=== PATIENT | female | born 1965 | race Two or more races ===

== ENCOUNTER 2023-11-22 20:22 | Emergency (ER) | payer SELFPAY ==
[~2023-11-22] VITALS: Ht 162.6 cm; Wt 70.0 kg
[2023-11-22 21:21] LABS: Eosinophils # (auto) 0.4 10 ^3/uL (0-0.8); Lymphocytes # (auto) 1.3 10 ^3/uL (0.4-5.4); Monocytes # (auto) 0.3 10 ^3/uL (0-1.3); Neutrophils # (auto) 1.7 10 ^3/uL (1.6-8.6); Nucleated Red Blood Cells % 0.1 %; Red Cell Distribution Width 13.3 % (11.8-14.3)
[2023-11-22 21:23] LABS: Basophils # (auto) 0 10 ^3/uL (0-0.2); Eosinophils % (auto) 9.7 % (0.0-7.0); Hematocrit 39.3 % (36.0-46.0); Hemoglobin 13.8 g/dL (12.2-16.2); Lymphocytes % (auto) 35.2 % (10.0-50.0); Mean Corpuscular Hemoglobin 35.1 pg (28.0-32.0); Mean Corpuscular Hgb Conc. 35.2 g/dL (32.0-36.0); Mean Corpuscular Volume 99.8 fL (80.0-100.0); Neutrophils % (auto) 46.1 % (37.0-80.0); Red Blood Cells 3.94 10^6/uL (4.0-5.20); White Blood Cell 3.7 10^3/uL (4.4-10.8)
[2023-11-22 21:38] LABS: Acetaminophen < 2.0 UG/ML (10.0-20.0); Alanine Aminotransferase 53 U/L (7-40); Albumin 4.1 g/dL (3.2-4.8); Alkaline Phosphatase 183 U/L (46-116); Anion Gap 14 (5-15); Aspartate Aminotransferase 97 U/L (13-40); BUN/Creatinine Ratio 19.8 (10.0-20.0); Blood Alcohol 200.8 mg/dL (<10); Blood Urea Nitrogen 17 mg/dL (9-23); Calcium 9.5 mg/dL (8.7-10.4); Carbon Dioxide 16 mmol/L (20-30); Chloride 114 mmol/L (98-107); Glucose 92 mg/dL (74-106); Potassium 3.5 mmol/L (3.5-5.1); Sodium 144 mmol/L (136-145)
[2023-11-22 21:39] LABS: Bilirubin, Total 0.9 mg/dL (0.2-1.0); Total Protein 7.2 g/dL (5.7-8.2)
[2023-11-22 21:40] LABS: Salicylate < 3.0 mg/dL (2.8-20.0)
[2023-11-22 23:00] VITALS: BP 123/45; PULSE 82; RESP 16; TEMP 98.4; O2SAT 97
== END 2023-11-23 07:47 | disposition left against medical advice (07) ==
LOC: ER 20:22 → EDBD 20:22 → ER 11-23 07:37
DX: R45.851 Suicidal ideations (principal); F32.9 Major depressive disorder, single episode, unspecified; F10.10 Alcohol abuse, uncomplicated
CPT/HCPCS: 36415; 80053; 80320; 80329; 84484; 85025